=== PATIENT | female | born 1995 | race Caucasian/White ===

== ENCOUNTER 2017-05-24 10:42 | Emergency (ER) | payer SELFPAY ==
[2017-05-24 10:55] VITALS: BP 142/89; BMI 20.5
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
== END 2017-05-24 12:24 | disposition home or self-care (01) ==
LOC: ER 11:02
DX: S16.1XXA Strain of muscle, fascia and tendon at neck level, initial encounter (principal); S39.012A Strain of muscle, fascia and tendon of lower back, initial encounter; J01.40 Acute pansinusitis, unspecified; S00.83XA Contusion of other part of head, initial encounter; V49.9XXA Car occupant (driver) (passenger) injured in unspecified traffic accident, initial encounter
CPT/HCPCS: 70450; 72125; 72131; 99282